=== PATIENT | male | born 1990 ===

== ENCOUNTER 2020-02-23 14:25 | Emergency (ER) | payer OTHER ==
[~2020-02-23] VITALS: Ht 187 cm; Wt 98.0 kg
[2020-02-23] MEDS ORDERED: NS IV 500 ML 500 ML IV ONE (14:31)
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
[2020-02-23 14:41] LABS: HEMOGLOBIN 15.4 G/DL (13.3-17.7); MEAN PLATELET VOLUME 10.1 FL (7.4-10.4); RED CELL DISTRIBUTION WIDTH 13.9 % (10.0-14.5); WHITE BLOOD COUNT 12.8 10^3/uL (4.3-11.0)
[2020-02-23] MEDS ORDERED: fentaNYL INJECTION 100 MCG/2 ML AMP IVP ONE ×2 (14:45→15:15)
[2020-02-23 14:53] LABS: ALBUMIN 4.3 GM/DL (3.2-4.5); CHLORIDE 108 MMOL/L (98-107); POTASSIUM 3.5 MMOL/L (3.6-5.0); SODIUM 141 MMOL/L (135-145)
[2020-02-23 14:54] LABS: CALCIUM 9.4 MG/DL (8.5-10.1)
[2020-02-23 14:56] LABS: GLUCOSE 120 MG/DL (70-105); TOTAL PROTEIN 7.5 GM/DL (6.4-8.2)
[2020-02-23 14:57] LABS: BILIRUBIN,TOTAL 0.5 MG/DL (0.1-1.0); CARBON DIOXIDE 22 MMOL/L (21-32)
[2020-02-23 14:59] LABS: ALKALINE PHOSPHATASE 78 U/L (40-136); CREATININE SERUM 0.94 MG/DL (0.60-1.30); GFR ESTIMATED > 60
[2020-02-23 15:00] LABS: BUN/CREATININE RATIO 12
[2020-02-23 15:01] LABS: BILIRUBIN,DIRECT 0.2 MG/DL (0.0-0.3); BILIRUBIN,INDIRECT 0.3 MG/DL
[2020-02-23 15:02] LABS: ALANINE AMINOTRANSFERASE 91 U/L (0-55)
[2020-02-23] MEDS ORDERED: KETAMINE/NaCl 50 MG/5 ML SYRINGE (ED ONLY) IV ONE (15:15)
--- NOTE | 2020-02-23 15:54 | Diagnostic Imaging Report ---
INDICATION: Fall from the back of pickup. TIME OF EXAM: 03:38 p.m. COMPARISON: No prior studies are available for comparison. FINDINGS: The heart size is normal. The pulmonary vascularity is unremarkable. The lungs are clear. No infiltrate, effusion or pneumothorax is detected. IMPRESSION: No acute cardiopulmonary process is detected. Dictated by: Dictated on workstation # [id number]
--- NOTE | 2020-02-23 15:55 | Diagnostic Imaging Report ---
INDICATION: Fall with arm pain. TIME OF EXAM: 03:47 p.m. FINDINGS: Two views of the right forearm are obtained. Alignment of the elbow and wrist appears normal. The radius and ulna appear to be intact. No fractures are seen. IMPRESSION: No acute bony abnormality is detected. Dictated by: Dictated on workstation # [id number]
--- NOTE | 2020-02-23 15:57 | Diagnostic Imaging Report ---
INDICATION: Trauma, fall. TIME OF EXAM: 03:40 p.m. FINDINGS: Single view of the humerus demonstrates comminuted fracture through the mid shaft of the humerus. There is medial angulation of the distal fracture fragment as well as some distraction. There is a dominant fracture fragment displaced medially. Alignment at the elbow and shoulder appears normal. IMPRESSION: Comminuted mid shaft humerus fracture. Dictated by: Dictated on workstation # [id number]
[2020-02-23 15:59] LABS: BILIRUBIN,URINE NEGATIVE (NEGATIVE); CLARITY,URINE SL CLOUDY; COLOR,URINE YELLOW; GLUCOSE, URINE (UA) NEGATIVE (NEGATIVE); KETONES,URINE NEGATIVE (NEGATIVE); LEUKOCYTE ESTERASE ,URINE NEGATIVE (NEGATIVE); NITRITE,URINE NEGATIVE (NEGATIVE); PROTEIN,URINE NEGATIVE (NEGATIVE)
[2020-02-23 16:09] LABS: AMORPHOUS SEDIMENT,UR LARGE AMOR PHOSPHATE /LPF; BACTERIA,URINE TRACE /HPF; WBC,URINE 0-2 /HPF
[2020-02-23] MEDS ORDERED: HYDROmorphone 2 MG/ML VIAL (DILAUDID) ONE (16:21)
[2020-02-23] MEDS ORDERED: HYDROmorphone 2 MG/ML VIAL (DILAUDID) IV ONE (16:30)
[2020-02-23] MEDS ORDERED: NS IV 1000 ML 1,000 ML IV SCH (16:49)
[2020-02-23] MEDS ORDERED: TETANUS,DIPTH,PERTUSS P/F (BOOSTRIX) 0.5 ML VIAL IM ONE ×2 (17:00→17:15)
[2020-02-23] MEDS ORDERED: HYDR-4342 PO (17:05)
[2020-02-23 17:58] VITALS: BP 140/110
== END 2020-02-23 17:58 | disposition home or self-care (01) ==
LOC: ER 14:27
DX: S42.354A Nondisplaced comminuted fracture of shaft of humerus, right arm, initial encounter for closed fracture (principal); V58.0XXA Driver of pick-up truck or van injured in noncollision transport accident in nontraffic accident, initial encounter; Y99.0 Civilian activity done for income or pay; Y92.410 Unspecified street and highway as the place of occurrence of the external cause
CPT/HCPCS: 29105; 71045; 73060; 73090; 80048; 80076; 81000; 85027; 93041; 99284; G0480; 36415; 80320; 90715